=== PATIENT | male | born 1950 | race Caucasian/White ===

== ENCOUNTER → 2023-07-21 13:35 | Outpatient (REF) | payer MEDICARE, SELFPAY | LOC: RAD 13:35 | PROVIDERS: ATTENDING PHYSICIAN Family Medicine | DX: F17.210 Nicotine dependence, cigarettes, uncomplicated (principal) | CPT/HCPCS: 71271 ==

== ENCOUNTER → 2024-09-06 10:34 | Outpatient (REF) | payer MEDICARE, SELFPAY | LOC: HWRAD 10:34 | PROVIDERS: ATTENDING PHYSICIAN Family Medicine | DX: F17.210 Nicotine dependence, cigarettes, uncomplicated (principal) | CPT/HCPCS: 71271 ==

== ENCOUNTER → 2025-01-28 07:45 | Outpatient (REF) | payer MEDICARE, SELFPAY | LOC: PAVMRI 07:45 | PROVIDERS: ATTENDING PHYSICIAN Specialist; FAMILY PHYSICIAN Family Medicine | DX: F95.1 Chronic motor or vocal tic disorder (principal) | CPT/HCPCS: 70553; A9575 ==

== ENCOUNTER → 2025-01-29 06:53 | Outpatient (REF) | payer MEDICARE, SELFPAY | LOC: RAD 06:53 | PROVIDERS: ATTENDING PHYSICIAN Specialist; FAMILY PHYSICIAN Family Medicine; OTHER PHYSICIAN Specialist | DX: N18.31 Chronic kidney disease, stage 3a (principal) | CPT/HCPCS: 93975 ==

== ENCOUNTER → 2025-04-07 08:47 | Outpatient (REF) | payer MEDICARE, SELFPAY | LOC: PAVMRI 08:47 | PROVIDERS: ATTENDING PHYSICIAN Specialist; FAMILY PHYSICIAN Family Medicine | DX: E78.2 Mixed hyperlipidemia (principal); I12.9 Hypertensive chronic kidney disease with stage 1 through stage 4 chronic kidney disease, or unspecified chronic kidney disease; N17.9 Acute kidney failure, unspecified | CPT/HCPCS: 74185; A9585 ==